=== PATIENT | female | born 1965 ===

== ENCOUNTER 2019-01-22 09:51 | Emergency (ER) | payer MEDICARE, MEDICAID ==
[2019-01-22 10:17] VITALS: BP 124/81
--- NOTE | 2019-01-22 11:35 | UC ---
Dental HPI - HPI Summary HPI Summary: 53-year-old female presents with a three-day history of left upper dental pain. States has appointment with dentist on 02/12/2019 but was recommended to be seen and possibly started on antibiotics for infection. Has taken acetaminophen with minimal relief in pain. Denies fever, chills, trismus, or drainage, dysphagia, or difficulty breathing. - History of Current Complaint Chief Complaint: UCDentalProblem Stated Complaint: TOOTH ACHE Time Seen by Provider: 01/22/19 10:08 Hx Obtained From: Patient Pain Intensity: 10 - Allergies/Home Medications Allergies/Adverse Reactions: Allergies Allergy/AdvReac Type Severity Reaction Status Date / Time No Known Allergies Allergy Verified 01/22/19 10:17 PMH/Surg Hx/FS Hx/Imm Hx Previously Healthy: Yes - Denies significant PMH - Surgical History Surgical History: None - Family History Known Family History: Positive: Non-Contributory - Social History Occupation: Retired Lives: Alone Alcohol Use: None Substance Use Type: None Smoking Status (MU): Never Smoked Tobacco Review of Systems All Other Systems Reviewed And Are Negative: Yes Constitutional: Negative: Fever, Chills ENT: Positive: Dental Pain Respiratory: Positive: Negative Cardiovascular: Positive: Negative Gastrointestinal: Positive: Negative Genitourinary: Positive: Negative Musculoskeletal: Positive: Negative Neurological: Positive: Negative Is Patient Immunocompromised?: No Physical Exam - Summary Physical Exam Summary: GENERAL APPEARANCE: Well developed, well nourished, alert and cooperative, and appears to be in no acute distress. MOUTH/THROAT: Pharynx normal No tonsilar inflammation, swelling, exudate, or lesions. Uvula midline. Overall dentition in fair condition. Mild tenderness around the left upper molars with no induration, fluctuance, or drainage noted. No trismus. NECK: Neck supple, non-tender without lymphadenopathy. CARDIAC: Normal S1 and S2. No S3, S4 or murmurs. Rhythm is regular. There is no peripheral edema, cyanosis or pallor. Extremities are warm and well perfused. Capillary refill is less than 2 seconds. Peripheral pulses intact. LUNGS: Clear to auscultation without rales, rhonchi, wheezing or diminished breath sounds. ABDOMEN: Positive bowel sounds. Soft, nondistended, nontender. No guarding or rebound. No masses or hepatosplenomegally. MUSKULOSKELETAL: ROM intact to all extremities. No joint erythema or tenderness. Normal muscular development. Normal gait. SKIN: Skin normal color, texture and turgor with no lesions or eruptions. Triage Information Reviewed: Yes Vital Signs: Initial Vital Signs Temp 98 F 01/22/19 10:14 Pulse 78 01/22/19 10:14 Resp 17 01/22/19 10:14 BP 124/81 01/22/19 10:14 Pulse Ox 97 01/22/19 10:14 Vital Signs Reviewed: Yes Dental Complaint Course/Dx - Course Course Of Treatment: 53-year-old female presents with a three-day history of left upper dental pain. States has appointment with dentist on 02/12/2019 but was recommended to be seen and possibly started on antibiotics for infection. Has taken acetaminophen with minimal relief in pain. Denies fever, chills, trismus, or drainage, dysphagia, or difficulty breathing. Afebrile. Vital signs stable. Patient and mild tenderness around the left upper molars with no induration, fluctuance, or drainage noted. No trismus. Remainder of exam was unremarkable. We'll start the patient on Augmentin 875 mg twice a day 10 days for a possible dental infection. Also provided her with a prescription for naproxen 500 mg twice daily as needed for pain. She is to keep her appointment with her dentist on 02/12/2019 as scheduled. Anticipatory guidance and warning symptoms are reviewed with the patient. Verbalizes understanding of this plan of care. - Differential Dx/Diagnosis Differential Diagnosis/Dx: Dental Abscess, Dental Caries, Fractured Tooth, Odontogenic Pain, Peridontic Disease Provider Diagnosis: Pain, dental Discharge ED - Sign-Out/Discharge Documenting (check all that apply): Patient Departure All imaging exams completed and their final reports reviewed: No Studies - Discharge Plan Condition: Stable Disposition: HOME Prescriptions: Amoxicillin/Clavulanate TAB* [Augmentin TAB 875*] 875 mg PO BID #20 tab Naproxen [Naproxen 500 mg tab] 500 mg PO Q12HR #30 tablet Patient Education Materials: Toothache (ED) Referrals: Bienvenido Rowe MD [Primary Care Provider] - Additional Instructions: Start Augmentin 875 mg 1 tab twice a day for 10 days. Be sure to complete the entire course even if feeling better. Take naproxen 500 mg 1 tablet every 12 hours with food as needed for pain. Be sure to rinse your mouth out with a warm salt water solution after every time you eat to remove any debris. Keep your appointment with your dentist on February 12 as scheduled. Seek immediate medical attention in the emergency room if you develop fever greater than 100.5 F, you are unable to open of close your mouth, are unable to swallow, have difficulty breathing, or any worsening of symptoms. - Billing Disposition and Condition Condition: STABLE Disposition: Home
== END 2019-01-22 11:56 | disposition home or self-care (01) ==
LOC: UCEAST 09:51
DX: K08.89 Other specified disorders of teeth and supporting structures (principal)
CPT/HCPCS: 99212; G0463

== ENCOUNTER 2019-06-07 18:14 | Emergency (ER) | payer MEDICARE, MEDICAID ==
--- NOTE | 2019-06-07 20:25 | UC ---
Respiratory Complaint HPI - History of Current Complaint Stated Complaint: COUGH Time Seen by Provider: 06/07/19 20:19 - Allergies/Home Medications Allergies/Adverse Reactions: Allergies Allergy/AdvReac Type Severity Reaction Status Date / Time ortees (food) Allergy Unknown Uncoded 06/07/19 20:14 Reaction Details Home Medications: Home Medications Naproxen [Naproxen 500 mg tab] 500 mg PO Q12HR #30 tablet 01/22/19 [Rx Confirmed 06/07/19] Acetaminophen [Mapap] 1 tab PO ONCE PRN 06/07/19 [History Confirmed 06/07/19] PMH/Surg Hx/FS Hx/Imm Hx - Surgical History Surgical History: None - Family History Known Family History: Positive: Non-Contributory - Social History Alcohol Use: None Substance Use Type: None Smoking Status (MU): Never Smoked Tobacco Respiratory Course/Dx - Differential Dx/Diagnosis Provider Diagnosis: Bronchitis Discharge ED - Sign-Out/Discharge Documenting (check all that apply): Patient Departure All imaging exams completed and their final reports reviewed: No Studies - Discharge Plan Condition: Stable Disposition: HOME Referrals: Bienvenido Rowe MD [Primary Care Provider] - - Billing Disposition and Condition Condition: STABLE Disposition: Home
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
--- NOTE | 2019-06-07 21:00 | UC ---
UC Telehealth HPI HPI Summary: 53-year-old woman comes in with chief complaint of 2-1/2-3 weeks of cough chest congestion. She has had a headache. She reports that she gets this illness every year and she gets better with naproxen and Augmentin. UC Telehealth PMH Previously Healthy: Yes Cardiovascular History: Reports: Hx Hypertension - Cancer History Hx Chemotherapy: No Hx Radiation Therapy: No - Surgical History Surgery Procedure, Year, and Place: leg surgery Infectious Disease History: No - Family History Known Family History: Positive: Non-Contributory - Social History Alcohol Use: None Substance Use Type: Reports: None Smoking Status (MU): Never Smoked Tobacco UC Telehealth ROS All Other Systems Reviewed And Are Negative: Yes Positive: Other - see hpi Eyes: Negative Positive: Nasal Discharge Cardiovascular: Negative Positive: Cough Gastrointestinal: Negative Musculoskeletal: Negative Skin: Negative Neurological/Mental Status: Negative Positive: Headache UC Telehealth PE Telehealth Physical Exam: The physical exam interview was obtained by visual telemedicine. This limits the physical exam Appearance: Positive: Well-Appearing Skin: Positive: Warm Eyes: Positive: Normal Neck: Positive: Supple Respiratory/Lung Sounds: Positive: Cough Cardiovascular: Positive: Skin Color Reflects Adequate Perfusion Musculoskeletal: Positive: Normal Tone Neurological: Positive: Alert, Oriented to Person Place, Time Psychiatric: Positive: Normal UC Telehealth Course/Dx Assessment/Plan: Patient will go into self-isolation. She reports that the Augmentin and naproxen always helps her and therefore I prescribed him. Patient she get reevaluated if worse or any questions or concerns. Provider Diagnoses: Bronchitis UC Telehealth Disposition Provider Recommendation for Treatment: Primary Care Physician Telehealth Visit: Patient Consented Verbally to Telehealth Visit Telehealth Patient Statement: The patient should understand that they are communicating with their provider via a secure communication platform and that all the same privacy and confidentiality rules apply. They will also be responsible for copayments or coinsurances that apply to any Telehealth visit. Patient Identifiers: 2 Patient Identifiers Verified for Telehealth Visit Telehealth Visit Start Time: 20:30 Telehealth Visit End Time: 21:04 Telehealth Provider Attestation: The above services were appropriate to provide in a Telehealth setting.
[2019-06-07 21:21] VITALS: BP 141/92
== END 2019-06-07 21:15 | disposition home or self-care (01) ==
LOC: UCEAST 18:14
DX: J40 Bronchitis, not specified as acute or chronic (principal); Z20.828 Contact with and (suspected) exposure to other viral communicable diseases; I10 Essential (primary) hypertension
CPT/HCPCS: 99213; G0463; Q3014; U0002